=== PATIENT | female | born 2000 | race Caucasian/White ===

== ENCOUNTER 2020-10-20 19:47 | Emergency (ER) | payer OTHER ==
[~2020-10-20] VITALS: Ht 162.6 cm; Wt 64.1 kg
[2020-10-20] MEDS ORDERED: DICY10AM IM (20:07)
[2020-10-20] MEDS ORDERED: NEXP1IMP SC (20:07)
[2020-10-20] MEDS ORDERED: ZYRTTAB8 PO (20:07)
[2020-10-20 20:52] LABS: HEMOGLOBIN 13.3 g/dl (12.0-15.5); MEAN CORPUSCULAR HEMOGLOBIN 28.2 pg (27.0-33.0); MEAN CORPUSCULAR HGB CONC 30.9 g/dl (32.0-36.5); MEAN CORPUSCULAR VOLUME 91.1 fl (80.0-96.0); PLATELET COUNT, AUTOMATED 246 10^3/uL (150-450); RED BLOOD COUNT 4.72 10^6/uL (4.00-5.40); WHITE BLOOD COUNT 6.5 10^3/uL (4.0-10.0)
[2020-10-20 21:14] LABS: BLOOD UREA NITROGEN 12 MG/DL (7-18); CALCIUM LEVEL 9.6 MG/DL (8.5-10.1); CARBON DIOXIDE LEVEL 27 MEQ/L (21-32); CHLORIDE LEVEL 110 MEQ/L (98-107); CREATININE FOR GFR 0.64 MG/DL (0.55-1.30); GLOMERULAR FILTRATION RATE > 60.0 (>60); GLUCOSE, FASTING 84 MG/DL (70-100); SODIUM LEVEL 144 MEQ/L (136-145)
[2020-10-20 21:15] LABS: HCG, SERUM QUALITATIVE NEGATIVE (NEGATIVE)
--- NOTE | 2020-10-20 21:38 | REPVR ---
PROCEDURE INFORMATION: Exam: US Nonobstetric Pelvis; Complete Exam date and time: 10/20/2020 9:22 PM Age: 20 years old Clinical indication: Pelvic pain TECHNIQUE: Imaging protocol: Transabdominal pelvic nonobstetric ultrasound. Complete exam. Real time ultrasound with image documentation. COMPARISON: No relevant prior studies available. FINDINGS: Uterus/cervix: Uterus measures 8.8 x 3.7 x 5.9 cm. Endometrial echo complex measures 1.4 cm. Right adnexa: Right ovary measures 4.2 x 2.3 x 3 cm. Normal flow. Functional cyst right ovary. Left adnexa: Left ovary measures 3.5 x 2.2 x 2.8 cm. Normal flow. Intraperitoneal space: No intraperitoneal fluid. Urinary bladder: Normal. IMPRESSION: No acute findings. Electronically signed by: David Pace On 10/20/2020 21:38:41 PM
[2020-10-20] MEDS ORDERED: IBUP80TA PO (22:05)
[2020-10-20] MEDS ORDERED: MIRA3350 PO (22:05)
[2020-10-20 22:29] VITALS: BP 114/58
== END 2020-10-20 22:32 | disposition home or self-care (01) ==
LOC: M ED 19:47
DX: N93.8 Other specified abnormal uterine and vaginal bleeding (principal); K58.9 Irritable bowel syndrome, unspecified; Z79.3 Long term (current) use of hormonal contraceptives; Z79.899 Other long term (current) drug therapy; Z88.0 Allergy status to penicillin